=== PATIENT | female | born 1950 | race Caucasian/White ===

== ENCOUNTER 2018-06-23 21:52 | Emergency (ER) | payer MEDICARE ==
[2018-06-23] MEDS ORDERED: SODIUM CHLORIDE 0.9% 500 ML 500 ML IV STA ×2 (21:56→23:55)
[2018-06-23] MEDS ORDERED: SODIUM CHLORIDE 0.9% 1,000 ML IV STA ×2 (21:56→23:55)
--- NOTE | 2018-06-23 22:06 | ED ---
SOB HPI - General Source: RN notes reviewed, old records reviewed - History of Present Illness MD Complaint: shortness of breath, cough, anxiety -: minutes(s) Severity: severe Severity scale (1-10): 10 Quality: aching Consistency: constant Improves With: oxygen, bronchodilators, medication Worsens With: exertion, movement Known History Of: COPD Context: recent URI, smoke/fume exposure Associated Symptoms: fever, cough Treatments Prior to Arrival: bronchodilator <Jorge Luis Escobar - Last Filed: 06/23/18 23:59> <Miah Andrew - Last Filed: 06/24/18 02:32> - General Stated Complaint: Chest Pain/TAISHA Time Seen by Provider: 06/23/18 21:55 - History of Present Illness Initial Comments: This is a 67-year-old female the ER for evaluation of severe shortness of breath severe distress, patient's brought in by EMS at this point history is obtained by EMS secondary patient significantly low pulse ox elevated heart rate. EMS states patient was in SVT they did give adenosine mild improvement heart rate were unable to get oxygen throughout entire out. Patient just complains of severe shortness of breath and inability to catch her breath. ( Jorge Luis Escobar) - Related Data Allergies Allergy/AdvReac Type Severity Reaction Status Date / Time No Known Allergies Allergy Verified 06/23/18 22:13 Review of Systems ROS Other: All systems not noted in ROS Statement are negative. <Jorge Luis Escobar - Last Filed: 06/23/18 23:59> ROS Other: All systems not noted in ROS Statement are negative. <Miah Andrew - Last Filed: 06/24/18 02:32> ROS Statement: Those systems with pertinent positive or pertinent negative responses have been documented in the HPI. General Exam General appearance: alert, anxious, in distress Head exam: Present: atraumatic, normocephalic, normal inspection Eye exam: Present: normal appearance, PERRL, EOMI. Absent: scleral icterus, conjunctival injection, periorbital swelling ENT exam: Present: normal exam, mucous membranes moist Neck exam: Present: normal inspection. Absent: tenderness, meningismus, lymphadenopathy Respiratory exam: Present: respiratory distress, wheezes, accessory muscle use, decreased breath sounds, prolonged expiratory. Absent: rales, rhonchi, stridor Cardiovascular Exam: Present: tachycardia, irregular rhythm, normal heart sounds. Absent: systolic murmur, diastolic murmur, rubs, gallop, clicks GI/Abdominal exam: Present: soft, normal bowel sounds. Absent: distended, tenderness, guarding, rebound, rigid Extremities exam: Present: normal inspection, full ROM, normal capillary refill. Absent: tenderness, pedal edema, joint swelling, calf tenderness Back exam: Present: normal inspection Neurological exam: Present: alert, oriented X3, CN II-XII intact Psychiatric exam: Present: normal affect, normal mood Skin exam: Present: warm, dry, intact, normal color. Absent: rash <Jorge Luis Escobar B - Last Filed: 06/23/18 23:59> Vital Signs 06/23/18 06/23/18 06/23/18 21:58 22:00 22:04 Temperature Pulse Rate 129 H Respiratory 26 H 36 H Rate Blood Pressure 88/57 O2 Sat by Pulse 65 L 78 L 67 L Oximetry 06/23/18 06/23/18 06/23/18 22:09 22:14 22:15 Temperature Pulse Rate 125 H Respiratory 17 Rate Blood Pressure 88/57 O2 Sat by Pulse 84 L 90 L Oximetry 06/23/18 06/23/18 06/23/18 22:30 22:45 23:00 Temperature Pulse Rate 123 H 124 H 124 H Respiratory 20 23 19 Rate Blood Pressure 95/62 105/60 O2 Sat by Pulse 91 L 90 L Oximetry 06/23/18 06/23/18 06/24/18 23:15 23:30 00:00 Temperature Pulse Rate 124 H 125 H Respiratory 23 22 20 Rate Blood Pressure 105/60 101/59 104/66 O2 Sat by Pulse 92 L 76 L 92 L Oximetry 06/24/18 06/24/18 06/24/18 00:05 00:15 00:30 Temperature 98.4 F Pulse Rate 116 H 116 H 114 H Respiratory 18 23 17 Rate Blood Pressure 104/66 103/70 103/70 O2 Sat by Pulse 94 L 93 L Oximetry 06/24/18 06/24/18 06/24/18 00:35 00:45 00:51 Temperature Pulse Rate 115 H 122 H 122 H Respiratory 23 Rate Blood Pressure 111/78 O2 Sat by Pulse 96 Oximetry Medical Decision Making - Lab Data Result diagrams: 03/01/19 23:01 - EKG Data -: EKG Interpreted by Me (EKG shows sinus tachycardia rate of 125, MA 160, QRS 84, QTc 438) <Jorge Luis Escobar - Last Filed: 06/23/18 23:59> - Lab Data Result diagrams: 06/23/18 23:01 06/24/18 00:17 <Miah Andrew - Last Filed: 06/24/18 02:32> - Medical Decision Making Receive this patient has a sign out pending the results of her computed tomography scan. I personally reviewed the CAT scan which does show what appears to be saddle pulmonary embolism. Given the large clot burden and the patient's clinical status. She would best be served at higher level of care facility. Preferably with intravascular management. Discussed results with the patient who does request [facility] as is the nearest facility. Discussed case with at [facility] who confirms availability there and will accept transfer. (Miah Andrew) - Lab Data Lab Results 06/23/18 06/23/18 06/23/18 Range/Units 23:01 23:01 23:01 WBC 18.6 H (3.8-10.6) k/uL RBC 4.86 (3.80-5.40) m/uL Hgb 14.7 (11.4-16.0) gm/dL Hct 46.1 H (34.0-46.0) % MCV 94.8 (80.0-100.0) fL MCH 30.2 (25.0-35.0) pg MCHC 31.9 (31.0-37.0) g/dL RDW 13.2 (11.5-15.5) % Plt Count 281 (150-450) k/uL Neutrophils % 82 % Lymphocytes % 8 % Monocytes % 7 % Eosinophils % 1 % Basophils % 0 % Neutrophils # 15.3 H (1.3-7.7) k/uL Lymphocytes # 1.5 (1.0-4.8) k/uL Monocytes # 1.3 H (0-1.0) k/uL Eosinophils # 0.2 (0-0.7) k/uL Basophils # 0.1 (0-0.2) k/uL PT (9.0-12.0) sec INR (<1.2) APTT (22.0-30.0) sec D-Dimer (<0.60) mg/L FEU Sodium (137-145) mmol/L Potassium (3.5-5.1) mmol/L Chloride (98-107) mmol/L Carbon Dioxide (22-30) mmol/L Anion Gap mmol/L BUN (7-17) mg/dL Creatinine (0.52-1.04) mg/dL Est GFR (CKD-EPI)AfAm (>60 ml/min/1.73 sqM) Est GFR (CKD-EPI)NonAf (>60 ml/min/1.73 sqM) Glucose (74-99) mg/dL Plasma Lactic Acid Galen 4.3 H* (0.7-2.0) mmol/L Calcium (8.4-10.2) mg/dL Phosphorus (2.5-4.5) mg/dL Magnesium (1.6-2.3) mg/dL Total Bilirubin (0.2-1.3) mg/dL AST (14-36) U/L ALT (9-52) U/L Alkaline Phosphatase (38-126) U/L Troponin I (0.000-0.034) ng/mL NT-Pro-B Natriuret Pep 90 pg/mL Total Protein (6.3-8.2) g/dL Albumin (3.5-5.0) g/dL TSH (0.465-4.680) mIU/L Urine Color Urine Appearance (Clear) Urine pH (5.0-8.0) Ur Specific [place] (1.001-1.035) Urine Protein (Negative) Urine Glucose (UA) (Negative) Urine Ketones (Negative) Urine Blood (Negative) Urine Nitrite (Negative) Urine Bilirubin (Negative) Urine Urobilinogen (<2.0) mg/dL Ur Leukocyte Esterase (Negative) Urine RBC (0-5) /hpf Urine WBC (0-5) /hpf Ur Squamous Epith Cells (0-4) /hpf Urine Bacteria (None) /hpf Urine Mucus (None) /hpf 06/24/18 06/24/18 06/24/18 Range/Units 00:17 00:17 00:17 WBC (3.8-10.6) k/uL RBC (3.80-5.40) m/uL Hgb (11.4-16.0) gm/dL Hct (34.0-46.0) % MCV (80.0-100.0) fL MCH (25.0-35.0) pg MCHC (31.0-37.0) g/dL RDW (11.5-15.5) % Plt Count (150-450) k/uL Neutrophils % % Lymphocytes % % Monocytes % % Eosinophils % % Basophils % % Neutrophils # (1.3-7.7) k/uL Lymphocytes # (1.0-4.8) k/uL Monocytes # (0-1.0) k/uL Eosinophils # (0-0.7) k/uL Basophils # (0-0.2) k/uL PT 10.3 (9.0-12.0) sec INR 1.0 (<1.2) APTT 21.7 L (22.0-30.0) sec D-Dimer 9.74 H (<0.60) mg/L FEU Sodium 141 (137-145) mmol/L Potassium 4.8 (3.5-5.1) mmol/L Chloride 111 H (98-107) mmol/L Carbon Dioxide 21 L (22-30) mmol/L Anion Gap 9 mmol/L BUN 37 H (7-17) mg/dL Creatinine 1.46 H (0.52-1.04) mg/dL Est GFR (CKD-EPI)AfAm 43 (>60 ml/min/1.73 sqM) Est GFR (CKD-EPI)NonAf 38 (>60 ml/min/1.73 sqM) Glucose 117 H (74-99) mg/dL Plasma Lactic Acid Galen (0.7-2.0) mmol/L Calcium 8.8 (8.4-10.2) mg/dL Phosphorus 4.1 (2.5-4.5) mg/dL Magnesium 2.2 (1.6-2.3) mg/dL Total Bilirubin 0.4 (0.2-1.3) mg/dL AST 66 H (14-36) U/L ALT 85 H (9-52) U/L Alkaline Phosphatase 76 (38-126) U/L Troponin I 0.608 H* (0.000-0.034) ng/mL NT-Pro-B Natriuret Pep pg/mL Total Protein 6.1 L (6.3-8.2) g/dL Albumin 3.5 (3.5-5.0) g/dL TSH 0.869 (0.465-4.680) mIU/L Urine Color Urine Appearance (Clear) Urine pH (5.0-8.0) Ur Specific [place] (1.001-1.035) Urine Protein (Negative) Urine Glucose (UA) (Negative) Urine Ketones (Negative) Urine Blood (Negative) Urine Nitrite (Negative) Urine Bilirubin (Negative) Urine Urobilinogen (<2.0) mg/dL Ur Leukocyte Esterase (Negative) Urine RBC (0-5) /hpf Urine WBC (0-5) /hpf Ur Squamous Epith Cells (0-4) /hpf Urine Bacteria (None) /hpf Urine Mucus (None) /hpf 06/24/18 Range/Units 01:48 WBC (3.8-10.6) k/uL RBC (3.80-5.40) m/uL Hgb (11.4-16.0) gm/dL Hct (34.0-46.0) % MCV (80.0-100.0) fL MCH (25.0-35.0) pg MCHC (31.0-37.0) g/dL RDW (11.5-15.5) % Plt Count (150-450) k/uL Neutrophils % % Lymphocytes % % Monocytes % % Eosinophils % % Basophils % % Neutrophils # (1.3-7.7) k/uL Lymphocytes # (1.0-4.8) k/uL Monocytes # (0-1.0) k/uL Eosinophils # (0-0.7) k/uL Basophils # (0-0.2) k/uL PT (9.0-12.0) sec INR (<1.2) APTT (22.0-30.0) sec D-Dimer (<0.60) mg/L FEU Sodium (137-145) mmol/L Potassium (3.5-5.1) mmol/L Chloride (98-107) mmol/L Carbon Dioxide (22-30) mmol/L Anion Gap mmol/L BUN (7-17) mg/dL Creatinine (0.52-1.04) mg/dL Est GFR (CKD-EPI)AfAm (>60 ml/min/1.73 sqM) Est GFR (CKD-EPI)NonAf (>60 ml/min/1.73 sqM) Glucose (74-99) mg/dL Plasma Lactic Acid Galen (0.7-2.0) mmol/L Calcium (8.4-10.2) mg/dL Phosphorus (2.5-4.5) mg/dL Magnesium (1.6-2.3) mg/dL Total Bilirubin (0.2-1.3) mg/dL AST (14-36) U/L ALT (9-52) U/L Alkaline Phosphatase (38-126) U/L Troponin I (0.000-0.034) ng/mL NT-Pro-B Natriuret Pep pg/mL Total Protein (6.3-8.2) g/dL Albumin (3.5-5.0) g/dL TSH (0.465-4.680) mIU/L Urine Color Yellow Urine Appearance Clear (Clear) Urine pH 5.0 (5.0-8.0) Ur Specific [place] 1.010 (1.001-1.035) Urine Protein Trace H (Negative) Urine Glucose (UA) Negative (Negative) Urine Ketones Negative (Negative) Urine Blood Negative (Negative) Urine Nitrite Positive H (Negative) Urine Bilirubin Negative (Negative) Urine Urobilinogen <2.0 (<2.0) mg/dL Ur Leukocyte Esterase Negative (Negative) Urine RBC 1 (0-5) /hpf Urine WBC 4 (0-5) /hpf Ur Squamous Epith Cells 2 (0-4) /hpf Urine Bacteria Many H (None) /hpf Urine Mucus Occasional H (None) /hpf Critical Care Time Critical Care Time: Yes (35 minutes) <Miah Andrew - Last Filed: 06/24/18 02:32> Disposition <Jorge Luis Escobar - Last Filed: 06/23/18 23:59> Is patient prescribed a controlled substance at d/c from ED?: No - Out of Hospital Transfer - Req. Specs Out of Hospital Transfer - Requested Specifics: Other Emergency Center <Miah Andrew - Last Filed: 06/24/18 02:32> Clinical Impression: Acute pulmonary embolism Disposition: OTHER INSTITUTION NOT DEFINED Condition: Critical Referrals: Yahaira Miller DO [Primary Care Provider] - 1-2 days
[2018-06-23] MEDS ORDERED: IPRATROPIUM-ALBUTEROL 3 ML NEB INHALATION STA (22:59)
--- NOTE | 2018-06-23 23:06 | XR ---
EXAM: XR Chest, 1 View CLINICAL HISTORY: Reason: SOB TECHNIQUE: Frontal view of the chest. COMPARISON: None available FINDINGS: Lungs: Lungs are clear of focal infiltrates or consolidations. Mild right upper lung zone subsegmental atelectasis or fibrotic stranding. Pleural space: No evidence of pleural effusion or pneumothorax. Heart: Heart size is within normal limits. Mediastinum: Mediastinal structures are unremarkable. Thoracic aorta is mildly elongated. Bones/joints: Previous left glenohumeral arthroplasty partially imaged. IMPRESSION: No evidence of acute cardiopulmonary disease.
[2018-06-23 23:20] LABS: Basophils # (A) 0.1 k/uL (0-0.2); Basophils % (A) 0 %; Eosinophils # (A) 0.2 k/uL (0-0.7); Eosinophils % (A) 1 %; HCT 46.1 % (34.0-46.0); HGB 14.7 gm/dL (11.4-16.0); Lymphocytes # (A) 1.5 k/uL (1.0-4.8); Lymphocytes % (A) 8 %; MCH 30.2 pg (25.0-35.0); MCHC 31.9 g/dL (31.0-37.0); MCV 94.8 fL (80.0-100.0); Monocytes # (A) 1.3 k/uL (0-1.0); Monocytes % (A) 7 %; Neutrophils # (A) 15.3 k/uL (1.3-7.7); Neutrophils % (A) 82 %; Platelet Count 281 k/uL (150-450); RBC 4.86 m/uL (3.80-5.40); RDW 13.2 % (11.5-15.5); WBC 18.6 k/uL (3.8-10.6)
[2018-06-24 00:06] VITALS: TEMP 98.4
[2018-06-24 01:00] LABS: Albumin 3.5 g/dL (3.5-5.0); Calcium 8.8 mg/dL (8.4-10.2); Magnesium 2.2 mg/dL (1.6-2.3); Phosphorus 4.1 mg/dL (2.5-4.5); Potassium 4.8 mmol/L (3.5-5.1); Total Bilirubin 0.4 mg/dL (0.2-1.3); Total Protein 6.1 g/dL (6.3-8.2)
[2018-06-24 01:12] LABS: Prothrombin Time 10.3 sec (9.0-12.0)
[2018-06-24] MEDS ORDERED: SODIUM CHLORIDE 0.9% 1,000 ML IV STA (01:17)
[2018-06-24] MEDS ORDERED: AMPICILLIN-SULBACTAM 3 GM in SODIUM CHLORIDE 0.9% 100 ML IVPB STA (01:17)
[2018-06-24 01:18] LABS: D-Dimer 9.74 mg/L FEU (<0.60); Partial Thromboplastin Time 21.7 sec (22.0-30.0)
[2018-06-24 02:01] LABS: Appearance,Urine Clear (Clear); Bacteria,Urine Many /hpf; Bilirubin,Urine Negative (Negative); Blood,Urine Negative (Negative); Color,Urine Yellow; Glucose,Urine (UA) Negative (Negative); Ketones,Urine Negative (Negative); Leukocyte Esterase,Urine Negative (Negative); Mucus,Urine Occasional /hpf; Nitrite,Urine Positive (Negative); Protein,Urine Trace (Negative); RBC,Urine 1 /hpf (0-5); Squamous Epithelial Cell,Urine 2 /hpf (0-4); Urobilinogen,Urine <2.0 mg/dL (<2.0); WBC,Urine 4 /hpf (0-5)
[2018-06-24] MEDS ORDERED: HEPARIN SODIUM,PORCINE 5,000 UNIT/ML 1 ML VIAL IV PRN (02:14)
[2018-06-24] MEDS ORDERED: HEPARIN SODIUM,PORCINE 10,000 UNIT/ML 1 ML VIAL IV ONE (02:14)
[2018-06-24] MEDS ORDERED: HEPARIN SOD,PORK IN 0.45% NACL 25,000 UNIT in 0.45% NACL 1 250ML.BAG IV SCH (02:15)
--- NOTE | 2018-06-24 02:53 | CT ---
EXAM: CT Angiography Chest With Intravenous Contrast CLINICAL HISTORY: ITS.REASON CT Reason: Pain SOB, abd pain TECHNIQUE: Axial computed tomographic angiography images of the chest with intravenous contrast using pulmonary embolism protocol. CTDI is 18.1 mGy and DLP is 685.8 mGy-cm. This CT exam was performed using one or more of the following dose reduction techniques: automated exposure control, adjustment of the mA and/or kV according to patient size, and/or use of iterative reconstruction technique. MIP reconstructed images were created and reviewed. COMPARISON: CT abdomen pelvis also today. FINDINGS: Pulmonary arteries: Bilateral pulmonary emboli with saddle embolus. Multiple pulmonary emboli extending to most of the segmental arteries throughout all the lobes bilaterally. Aorta: No acute findings. Atherosclerotic calcifications. Focal outpouching of the aortic arch with atherosclerotic plaque and calcifications. 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 No evidence of leak. Lungs: Mild scattered atelectasis or airspace disease bilaterally. No mass. No consolidation. Pleural space: Unremarkable. No significant effusion. No pneumothorax. Heart: Enlarged right ventricle, flattening of the interventricular septum and enlarged pulmonary artery consistent with right heart strain. No significant pericardial effusion. Bones/joints: Degenerative changes of the spine. No acute fracture. No dislocation. Soft tissues: Unremarkable. Lymph nodes: Unremarkable. No enlarged lymph nodes. Gallbladder and bile ducts: Cholecystectomy. IMPRESSION: 1. Bilateral pulmonary emboli with saddle embolus. Multiple pulmonary emboli extending to most of the segmental arteries throughout all the lobes bilaterally. 2. Evidence of right heart strain. 3. Focal outpouching of the aortic arch with atherosclerotic plaque and calcifications. 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 No evidence of leak. <MYCVCSECTION> [employer] 06/24/18 02:42 Call Doctor Regarding Pulmonary Embolism, called Dr. Merrill on 06/24 02:42 (-05:00) 06/24/18 02:44 Call Doctor Regarding Pulmonary Embolism, called Dr. Merrill on 06/24 02:43 (-05:00)
[2018-06-24 02:57] VITALS: BP 106/90; PULSE 120; RESP 19
--- NOTE | 2018-06-24 02:58 | CT ---
EXAM: CT Abdomen and Pelvis With Intravenous Contrast CLINICAL HISTORY: ITS.REASON CT Reason: Pain SOB, abd pain iso 370 (100ml) DLP 713.3 no prior TECHNIQUE: Axial computed tomography images of the abdomen and pelvis with intravenous contrast. CTDI is 14.1 mGy and DLP is 713.3 mGy-cm. This CT exam was performed using one or more of the following dose reduction techniques: automated exposure control, adjustment of the mA and/or kV according to patient size, and/or use of iterative reconstruction technique. COMPARISON: CTA chest also today. FINDINGS: Lung bases: Bilateral pulmonary emboli better visualized on the CTA chest also done today. Mild basilar atelectasis. No mass. No consolidation. ABDOMEN: Liver: Unremarkable. No mass. Gallbladder and bile ducts: Cholecystectomy and mild central biliary dilation. Pancreas: Unremarkable. No mass. No ductal dilation. Spleen: Unremarkable. No splenomegaly. Adrenals: Unremarkable. No mass. Kidneys and ureters: Unremarkable. No solid mass. No hydronephrosis. Stomach and bowel: Scattered colonic diverticulosis. No obstruction. No mucosal thickening. PELVIS: Appendix: Normal appendix. Bladder: Unremarkable. No mass. Reproductive: Absent uterus. ABDOMEN and PELVIS: Intraperitoneal space: Unremarkable. No free air. No significant fluid collection. Bones/joints: Mild levoscoliosis of the lumbar spine. Degenerative changes. No acute fracture. No dislocation. Soft tissues: Unremarkable. Vasculature: Mildly aneurysmal and tortuous abdominal aorta with atherosclerotic plaque and calcifications. Infrarenal abdominal aorta measures 2.4 cm. Lymph nodes: Unremarkable. No enlarged lymph nodes. IMPRESSION: 1. Bilateral pulmonary emboli better visualized on the CTA chest also done today. 2. No evidence of acute abnormality within the abdomen and pelvis.
== END 2018-06-24 03:11 | disposition short-term general hospital (02) ==
LOC: EC 21:52
DX: I26.99 Other pulmonary embolism without acute cor pulmonale (principal); R06.2 Wheezing; R06.03 Acute respiratory distress; Z87.891 Personal history of nicotine dependence; Z87.09 Personal history of other diseases of the respiratory system; Z90.89 Acquired absence of other organs
CPT/HCPCS: 36415; 94640; 93005; 85379; 83880; 80053; 83605; 83735; 84100; 84443; 84484; 85025; 85610; 85730; 81001; 87086; 71045; 71275; 74177; 99291; 96365; 96368; 96376; 96361; J1644 ×2; J0295; Q9967; 87077; 87186